=== PATIENT | female | born 1955 | race Caucasian/White ===

== ENCOUNTER 2023-09-24 17:03 | Inpatient (IN) ==
--- NOTE | 2023-09-24 18:07 | XRay Report ---
XR chest 1V not portable HISTORY: Chest pain, nonspecific COMPARISON: Chest 07/09/2013. FINDINGS: There are low lung volumes. No pneumothorax. No pleural effusions. Mild elevation of the ri ght hemidiaphragm. There are right basilar densities. The heart is mildly enlarged. No evidence for p ulmonary edema. No acute fractures. Surgical clips within the left axilla. IMPRESSION: 1. Low lung volumes with mild elevation of the right hemidiaphragm. Right basilar densities favor sub segmental atelectasis. A pneumonia could also have a similar appearance in the appropriate clinical s etting. 2. Mild cardiomegaly. ACT 112: Negative or not required by law. Electronically signed by: Farhan Wolf M.D. 09/24/2023 6:05 PM
--- NOTE | 2023-09-24 18:10 | Emergency Department Note ---
Impression & Plan Hypoxia, SOB (shortness of breath) ED Provider Note NAME: DAYAMI LUO AGE: 68 SEX: F : 1955 ARRIVES VIA: Walk-In INFORMANT: [Patient] ED PROVIDER(S): [Preet Hernandes MD] CHIEF COMPLAINT: Short of breath HISTORY OF PRESENT ILLNESS: The patient is a 68-year-old female who had right shoulder surgery today. During the operation, she did have a block performed on the shoulder. The patient was short of breath after the procedure and her O2 saturation was a bit low. She was felt safe for discharge. At home, she was quite short of breath and EMS noticed a very low saturation. O2 supplementation was applied. She was brought to the hospital. The patient does complain of some right shoulder pain, she feels as if she has to force herself to take a breath to get enough air. There has been no fever, no cough. PMHx/PSHx/Social Hx: See Below PHYSICAL EXAM: GENERAL: Patient is in no acute distress. HEENT: No acute trauma, normocephalic atraumatic, mucous membranes moist, no nasal congestion. NECK: No stridor, no adenopathy, no meningismus, trachea is midline. LUNGS: Breath sounds are clear but are diminished on the right. No obvious respiratory distress. HEART: 2/6 systolic murmur, regular rate and rhythm. ABDOMEN: Soft, nontender, no peritonitis. EXTREMITIES: No cyanosis. The patient has a right shoulder dressing with a right arm sling in place. No pedal edema. NEUROLOGIC: Oriented x 3, awake and alert. SKIN: No jaundice, no diaphoresis. DIFFERENTIAL DIAGNOSIS: Diaphragmatic nerve block, pneumothorax, pneumonia, aspiration, among others. EMERGENCY DEPARTMENT PROCEDURES: MEDICAL DECISION MAKING: The patient presents with some hypoxia and shortness of breath since her shoulder surgery today. 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 X-ray shows evidence for a diaphragm paralysis on the right. There was no pneumothorax, no pneumonia. The patient did well with simple O2 supplementation. There was a subtle leukocytosis, this is likely from the stress of the surgery and her events today. There was a normal hemoglobin and platelet count. No coagulopathy. No renal failure or significant electrolyte abnormality. No concerning liver enzyme elevation. ECG showed a normal sinus rhythm, no obvious ischemia. Cardiac enzyme testing x 1 was not consistent with acute cardiac injury. The patient was maintained on nasal cannula O2 supplementation. She was given an incentive spirometer. Given the hypoxia, the patient requires a hospital stay. She should improve as the block wears off. I spoke with the patient and case management, the on-call hospitalist was consulted. I did speak in advance of the patient's arrival to orthopedics, Mr. Resendez. Prior/Outside records/notes reviewed: Orthopedic note today describing her right shoulder surgery. ECG per my interpretation: Indication was shortness of breath. The ECG shows a normal sinus rhythm with a rate of 88. There is no acute ST elevation, no PVCs. The QTc is 464. Continuous Cardiac Monitoring per my interpretation: An order was placed for continuous cardiac monitoring. The monitor shows a rate of 85 with normal sinus rhythm. Imaging/x-ray results per my interpretation: Chest x-ray shows right diaphragm elevation, no pneumonia or pneumothorax. There is some atelectasis at the right base. Chronic Medical/Social conditions affecting care: Care/Management discussed with: Orthopedics-Mr. Resendez. Case management and the on-call hospitalist. Level of care consideration(s): After review of the information above and other included data: --I believe the patient requires escalation of care to admission DISPOSITION: Admission Past Med/Surg History Problem List (Updated 09/25/23 @ 10:48 by Kerrie Mosqueda PA-C) SOB (shortness of breath) (Acute) Hypoxia (Acute) S/P rotator cuff repair CAD (coronary artery disease) Acute and chronic respiratory failure with hypoxia Encounter for pre-operative examination Post-operative state (Acute 09/14/13) Post-operative state (Acute 07/31/13) Medical History Insomnia Hx of renal calculi no surgical intervention Rheumatoid arthritis Seasonal allergies severe Anxiety Hx of breast cancer 2005 right breast cancer -> surgical intervention 1997 left breast cancer -> radical total left mastectomy with lymph node removal and chemotherapy. History of aspiration pneumonia (1992) after having a cystoscopy with sedation at [facility], was admitted for ~2 weeks. Bilateral knee swelling chronic History of anesthesia reaction aspirated once in early due to no longer having esophageal sphincter - was eaten away from severe GERD/hiatal hernia - can not lay flat due to this GERD (gastroesophageal reflux disease) Hypothyroidism Depression Hyperlipidemia Hypertension BELL (dyspnea on exertion) Sleep apnea cpap at night Surgical History History of revision of total replacement of left knee joint History of arthroscopy of left shoulder (2019) S/P right knee arthroscopy x1 S/P left knee arthroscopy x2 S/P right mastectomy (2005) H/O total mastectomy of left breast (1997) with lymph node removal. History of bladder surgery bladder sling History of dilatation and curettage X3 History of esophagogastroduodenoscopy (EGD) History of colonoscopy History of cystoscopy History of total knee replacement bilateral History of hysterectomy vaginal hysterectomy with BSO and pelvic floor reconstruction History of endometrial ablation History of cholecystectomy History of Javier fundoplication (2003) History of tooth extraction History of heart artery stent 02/2018 at [facility] with 1 stent. 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 Beliefs That Will Affect Care: None Current Living Situation: Spouse Current Living Situation Comment: with Other Information That Helps Us Care for You: No Feels Safe at Home: Yes Safety Concerns: Feels Safe At This Time Assistive Devices: None Allergies Allergies Allergy/AdvReac Type Severity Reaction Status Date / Time bacitracin Allergy Intermediate localized Verified 09/24/23 06:13 swelling cefazolin Allergy Intermediate itching Verified 09/24/23 06:13 rash cephalexin Allergy Intermediate rash on Verified 09/24/23 06:13 chest miconazole Allergy Intermediate large hives Verified 09/24/23 06:13 morphine Allergy Intermediate Hives Verified 09/24/23 06:13 neomycin Allergy Intermediate localized Verified 09/24/23 06:13 swelling nickel Allergy Intermediate Rash Verified 09/24/23 06:13 polymyxin B Allergy Intermediate localized Verified 09/24/23 06:13 swelling Sulfa (Sulfonamide Allergy Intermediate fever and Verified 09/24/23 06:13 Antibiotics) rash prochlorperazine AdvReac Severe migraine Verified 09/24/23 06:13 lactose AdvReac Verified 09/25/23 08:49 Home Meds Home Medications Medication Instructions Recorded Confirmed Lactobacillus acidophilus 1 cap PO QAM 02/04/20 09/24/23 amlodipine 5 mg tablet 2.5 mg PO QAM 02/04/20 09/24/23 ascorbic acid (vitamin C) 1,000 mg 1 g PO QAM 02/04/20 09/24/23 tablet (Vitamin C) aspirin 81 mg tablet,delayed 81 mg PO QAM 02/04/20 09/24/23 release cholecalciferol (vitamin D3) 50 50 mcg PO QAM 02/04/20 09/24/23 mcg (2,000 unit) tablet (Vitamin D3) fluticasone propionate 50 1 spray intranasal [facility] 02/04/20 09/24/23 mcg/actuation nasal spray,suspension furosemide 40 mg tablet (Lasix) 40 mg PO BID 02/04/20 09/24/23 isosorbide mononitrate 60 mg 60 mg PO [facility] 02/04/20 09/24/23 tablet,extended release 24 hr levothyroxine 137 mcg tablet 137 mcg PO [facility] 02/04/20 09/24/23 melatonin 10 mg tablet 20 mg PO 02/04/20 09/24/23 metoprolol succinate 100 mg 100 mg PO [facility] 02/04/20 09/24/23 tablet,extended release 24 hr montelukast 10 mg tablet 10 mg PO QAM 02/04/20 09/24/23 (Singulair) multivitamin 1 tab PO QAM 02/04/20 09/24/23 mupirocin 2 % topical ointment 1 applic topical TID 02/04/20 09/24/23 pantoprazole 20 mg tablet,delayed 20 mg PO 02/04/20 09/24/23 release (Protonix) potassium 99 mg tablet 198 mg PO Q2D 02/04/20 09/24/23 valsartan 80 1 tab PO QAM 02/04/20 09/24/23 mg-hydrochlorothiazide 12.5 mg tablet vit C 250 mg-vit E 90 mg-zinc 40 1 tab PO BID 02/04/20 09/24/23 mg-copper 1 [id number] capsule (PreserVision AREDS-2) cetirizine 10 mg tablet (Zyrtec) 10 mg PO QPM 09/12/23 09/24/23 hydroxychloroquine 200 mg tablet 200 mg PO BID 09/12/23 09/24/23 (Plaquenil) ibuprofen 200 mg tablet 600 mg PO TID PRN Pain 09/12/23 09/24/23 magnesium oxide 400 mg PO Q2D 09/12/23 09/24/23 magnesium oxide 800 mg PO Q2D 09/12/23 09/24/23 nitroglycerin 0.4 mg sublingual 0.4 mg sublingual UD PRN Chest Pain 09/12/23 09/24/23 tablet potassium 99 mg tablet 297 mg PO Q2D 09/12/23 09/24/23 pravastatin 80 mg tablet 80 mg PO HS 09/12/23 09/24/23 sertraline 100 mg tablet 100 mg PO HS 09/12/23 09/24/23 trazodone 100 mg tablet 100 mg PO HS 09/12/23 09/24/23 Results & Data (ED) Vital Signs Vital Signs - 24 hr 09/24/23 17:05 09/24/23 17:21 09/24/23 17:23 Temperature 36.4 C L Temperature Source Temporal Artery Scan Pulse Rate 87 Pulse Rate [Apical] 84 Respiratory Rate 15 16 Respiratory Effort / Characteristics Spontaneous Short of Breath Non-Labored Spontaneous Respiratory Depth Normal Normal Respiratory Pattern Regular Regular Blood Pressure 148/73 H Blood Pressure [Right Calf] 149/55 H Blood Pressure Mean 98 Blood Pressure Mean [Right Calf] 86 Blood Pressure Position [Right Calf] Semi-fowlers Pulse Oximetry 88 L 94 Oxygen Delivery Method Room Air Room Air Room Air Oxygen Flow Rate Sepsis Recent Fever Within 48 Hours No Sepsis New/Unexplained Change in Mental Status N/A Sepsis Action Taken by Nursing No Action Required Oxygen Flow Rate - Titration 2 Pulse Oximetry Post Tiitration 93 09/24/23 17:23 09/24/23 17:40 Temperature Temperature Source Pulse Rate 83 85 Pulse Rate [Apical] Respiratory Rate 15 Respiratory Effort / Characteristics Respiratory Depth Respiratory Pattern Blood Pressure Blood Pressure [Right Calf] Blood Pressure Mean Blood Pressure Mean [Right Calf] Blood Pressure Position [Right Calf] Pulse Oximetry 93 Oxygen Delivery Method Nasal Cannula Oxygen Flow Rate 2 Sepsis Recent Fever Within 48 Hours Sepsis New/Unexplained Change in Mental Status Sepsis Action Taken by Nursing Oxygen Flow Rate - Titration Pulse Oximetry Post Tiitration Home Medications Current Medication List: was personally reviewed by me Laboratory Data Attestation: I reviewed the patient's lab results. 09/25/23 06:16 09/25/23 06:16 Lab Results 09/24/23 Range/Units 17:46 WBC 13.08 H (4.8-10.8) K/ul RBC 3.83 L (4.20-5.40) M/uL Hgb 12.3 (12.0-16.0) g/dl Hct 35.3 L (37.0-47.0) % MCV 92.2 (80.0-100.0) fL MCH 32.1 (25.0-34.0) pg MCHC 34.8 (32.0-36.0) g/dL RDW Std Deviation 42.4 (36.4-46.3) fL RDW Coeff of Nicholas 12.7 (11.5-14.5) % Plt Count 260 (130-400) K/uL MPV 10.8 (9.4-12.4) fL Immature Gran % (Auto) 0.7 % Neut % (Auto) 88.0 % Lymph % (Auto) 8.3 % [place] % (Auto) 2.8 % Eos % (Auto) 0.0 % Baso % (Auto) 0.2 % Neut # (Auto) 11.53 H (1.40-6.50) K/uL Lymph # (Auto) 1.08 L (1.20-3.40) K/uL [place] # (Auto) 0.36 (0.11-0.59) K/uL Eos # (Auto) 0.00 (0.00-0.50) K/uL Baso # (Auto) 0.02 (0.00-0.20) K/uL Immature Gran # (Auto) 0.09 (0.01-0.20) K/uL PT 11.1 (9.0-12.0) Seconds INR 1.0 (0.9-1.1) APTT 27 (21-31) Seconds PTT Ratio 1.0 Sodium 139 (136-145) mmol/L Potassium 3.6 (3.5-5.1) mmol/L Chloride 102 (98-107) mmol/L Carbon Dioxide 29 (21-32) mmol/L Anion Gap 8 (3-11) BUN 13 (6-23) mg/dl Creatinine 0.67 (0.6-1.2) mg/dl Est Cr Clr Drug Dosing Not Reportable Est GFR ( Amer) 104.7 ml/min Est GFR (Non-Af Amer) 90.3 ml/min BUN/Creatinine Ratio 19.4 (10-20) Glucose 127 H (70-99(Fasting)) mg/dl Calcium 9.4 (8.6-10.3) mg/dl Total Bilirubin 0.5 (0.2-1.0) mg/dl AST 22 (13-39) U/L ALT 22 (7-52) U/L Alkaline Phosphatase 69 (34-104) U/L Troponin I High Sens 9.3 (0-14) pg/ml Total Protein 6.7 (6.0-8.3) gm/dl Albumin 4.4 (3.4-5.0) gm/dl Globulin 2.3 L (2.5-4.0) gm/dl Albumin/Globulin Ratio 1.9 (0.9-2) Administered Medications Acetaminophen (Acetaminophen 325 Mg Tab) 650 mg PO Q4H PRN PRN Reason: pain/fever Stop: 10/24/23 20:44 Last Admin: 09/25/23 08:10 Dose: 650 mg Documented By: Admin: 09/24/23 21:18 Dose: 650 mg Documented By: VLADIMIR Amlodipine Besylate (Amlodipine Besylate 5 Mg Tab) 2.5 mg PO [facility] Stop: 10/25/23 08:59 Last Admin: 09/25/23 08:11 Dose: 2.5 mg Documented By: LETICIA Aspirin (Aspirin 81 Mg Ectab) 81 mg PO [facility] Stop: 10/25/23 08:59 Last Admin: 09/25/23 08:11 Dose: 81 mg Documented By: LETICIA Azithromycin (Azithromycin 250 Mg Tab) 250 mg PO [facility] Stop: 09/28/23 09:01 Last Admin: 09/25/23 08:12 Dose: 250 mg Documented By: LETICIA Fluticasone Propionate (Fluticasone Propionate Na Spr 16 Gm Btl) 1 sprays MARIA ELENA [facility] Stop: 10/25/23 08:59 Last Admin: 09/25/23 09:13 Dose: 1 sprays Documented By: LETICIA Furosemide (Furosemide 40 Mg Tab) 40 mg PO [id number] [facility] Stop: 10/24/23 20:59 Last Admin: 09/25/23 08:12 Dose: 40 mg Documented By: Admin: 09/24/23 22:08 Dose: 40 mg Documented By: VLADIMIR Hydrochlorothiazide (Hydrochlorothiazide 25 Mg Tab) 12.5 mg PO [facility] Stop: 10/25/23 08:59 Last Admin: 09/25/23 08:11 Dose: 12.5 mg Documented By: LETICIA Hydroxychloroquine Sulfate (Hydroxychloroquine Sulfate 200 Mg Tab) 200 mg PO BID [facility] Stop: 10/24/23 20:59 Last Admin: 09/25/23 08:12 Dose: 200 mg Documented By: Admin: 09/24/23 22:06 Dose: 200 mg Documented By: VLADIMIR Isosorbide Mononitrate (Isosorbide [place] Extended Rel 60 Mg Tabcr) 60 mg PO [facility] Stop: 10/25/23 08:59 Last Admin: 09/25/23 08:10 Dose: 60 mg Documented By: LETICIA Levothyroxine Sodium (Levothyroxine Sodium 137 Mcg Tablet) [facility] Stop: 10/25/23 06:29 Last Admin: 09/25/23 06:23 Dose: 137 mcg Documented By: VLADIMIR Magnesium Oxide (Magnesium Oxide 400 Mg Tab) 400 mg PO Q48H [facility] Stop: 10/25/23 08:59 Last Admin: 09/25/23 08:11 Dose: 400 mg Documented By: LETICIA Metoprolol Succinate (Metoprolol Succ 50mg Ext Rel Tab) 100 mg PO [facility] Stop: 10/25/23 08:59 Last Admin: 09/25/23 08:12 Dose: 100 mg Documented By: LETICIA Montelukast Sodium (Montelukast Sodium 10 Mg Tablet) 10 mg PO [facility] Stop: 10/25/23 08:59 Last Admin: 09/25/23 08:11 Dose: 10 mg Documented By: LETICIA Multivitamins/Minerals (Cerovite Adv Formula Tab) 1 tab PO [facility] Stop: 10/25/23 08:59 Last Admin: 09/25/23 08:11 Dose: 1 tab Documented By: LETICIA Mupirocin (Mupirocin 2% Oint 22 Gm Tube) 1 appln TOP TID [facility] Stop: 10/24/23 20:59 Last Admin: 09/25/23 08:12 Dose: 1 appln Documented By: Admin: 09/24/23 22:09 Dose: 1 appln Documented By: VLADIMIR Pantoprazole Sodium (Pantoprazole 40 Mg Tab) 40 mg PO [facility] Stop: 10/24/23 20:59 Last Admin: 09/24/23 22:07 Dose: 40 mg Documented By: VLADIMIR Pravastatin Sodium (Pravastatin Sod 40 Mg Tab) 80 mg PO [facility] Stop: 10/24/23 20:59 Last Admin: 09/24/23 22:08 Dose: 80 mg Documented By: VLADIMIR Sertraline HCl (Sertraline Hcl 100 Mg Tablet) 100 mg PO [facility] Stop: 10/24/23 20:59 Last Admin: 09/24/23 22:10 Dose: 100 mg Documented By: VLADIMIR Trazodone HCl (Trazodone Hcl 100 Mg Tab) 100 mg PO [facility] Stop: 10/24/23 20:59 Last Admin: 09/24/23 22:07 Dose: 100 mg Documented By: VLADIMIR Valsartan (Valsartan 80 Mg Tab) 80 mg PO [facility] Stop: 10/25/23 08:59 Last Admin: 09/25/23 08:12 Dose: 80 mg Documented By: LETICIA Vitamin D (Cholecalciferol 25 Mcg (1000 Units) Tab) 50 mcg PO [facility] Stop: 10/25/23 08:59 Last Admin: 09/25/23 08:11 Dose: 50 mcg Documented By: LETICIA Discontinued Medications Azithromycin (Azithromycin 250 Mg Tab) 500 mg PO NOW ONE Stop: 09/24/23 20:04 Last Admin: 09/24/23 20:22 Dose: 500 mg Documented By: PARESH Ketorolac Tromethamine (Ketorolac Tromethamine 15 Mg/Ml Vial) 15 mg IV NOW ONE Stop: 09/24/23 22:29 Last Admin: 09/24/23 22:48 Dose: 15 mg Documented By: VLADIMIR Ketorolac Tromethamine (Ketorolac Tromethamine 15 Mg/Ml Vial) 15 mg IV NOW ONE Stop: 09/25/23 03:39 Last Admin: 09/25/23 03:58 Dose: 15 mg Documented By: VLADIMIR Potassium Chloride (Potassium Chloride Crtab 20 Meq Tabcr) 40 meq PO NOW STA Stop: 09/25/23 07:32 Last Admin: 09/25/23 08:10 Dose: 40 meq Documented By: LETICIA Discharge Plan Visit Data Chief Complaint: Referred by Doctor Stated Complaint: SURGERY TODAY PULSE OX ED Provider: Preet Hernandes Discharge Problem: Hypoxia, SOB (shortness of breath) Patient Disposition: Admitted As Inpatient Condition: Good Discharge Instructions Interventions: ED Discharge Assessment Last Done: 09/24/23 19:55
[2023-09-24 18:21] LABS: Basophils # (auto) 0.02 K/uL (0.00-0.20); Basophils % (auto) 0.2 %; Hematocrit (blood only) 35.3 % (37.0-47.0); Hemoglobin 12.3 g/dl (12.0-16.0); Immature Granulocytes # (auto) 0.09 K/uL (0.01-0.20); Immature Granulocytes % (auto) 0.7 %; Lymphocytes # (auto) 1.08 K/uL (1.20-3.40); Lymphocytes % (auto) 8.3 %; Mean Corpuscular Hemoglobin 32.1 pg (25.0-34.0); Mean Corpuscular Hgb Conc 34.8 g/dL (32.0-36.0); Mean Corpuscular Volume 92.2 fL (80.0-100.0); Mean Platelet Volume 10.8 fL (9.4-12.4); Monocytes # (auto) 0.36 K/uL (0.11-0.59); Monocytes % (auto) 2.8 %; Neutrophils # (auto) 11.53 K/uL (1.40-6.50); Platelet Count 260 K/uL (130-400); RDW Coefficient of Variation 12.7 % (11.5-14.5); RDW Standard Deviation 42.4 fL (36.4-46.3); Red Blood Count 3.83 M/uL (4.20-5.40); White Blood Count 13.08 K/ul (4.8-10.8)
[2023-09-24 18:31] LABS: Alanine Aminotransferase 22 U/L (7-52); Albumin Globulin Ratio 1.9 (0.9-2); Albumin Level 4.4 gm/dl (3.4-5.0); Alkaline Phosphatase 69 U/L (34-104); Anion Gap 8 (3-11); Aspartate Aminotransferase 22 U/L (13-39); BUN Creatinine Ratio 19.4 (10-20); Bilirubin,Total 0.5 mg/dl (0.2-1.0); Blood Urea Nitrogen 13 mg/dl (6-23); Calcium 9.4 mg/dl (8.6-10.3); Carbon Dioxide 29 mmol/L (21-32); Chloride 102 mmol/L (98-107); Est GFR (African American) 104.7 ml/min; Est GFR (Non-African American) 90.3 ml/min; Globulin 2.3 gm/dl (2.5-4.0); Glucose 127 mg/dl (70-99(Fasting)); Potassium 3.6 mmol/L (3.5-5.1); Sodium 139 mmol/L (136-145); Total Protein 6.7 gm/dl (6.0-8.3)
[2023-09-24 18:38] LABS: Troponin I High Sensitivity 9.3 pg/ml (0-14)
[2023-09-24 18:58] LABS: Partial Thromboplastin Time 27 Seconds (21-31); Prothrombin Time 11.1 Seconds (9.0-12.0)
--- NOTE | 2023-09-24 19:02 | History & Physical Report ---
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 Supplemental oxygen Monitor on telemetry (2) CAD (coronary artery disease): Plan: Patient denies any chest pain Continue home medication (3) Hx of breast cancer: Plan: Bilateral mastectomy In remission (4) GERD (gastroesophageal reflux disease): Plan: Continue PPIs (5) Hypothyroidism: Plan: Continue Synthroid (6) Depression: Plan: Continue home meds (7) Hyperlipidemia: Plan: Continue statins (8) Hypertension: Plan: Continue metoprolol Continue furosemide Continue amlodipine Monitor blood pressure (9) Sleep apnea: Plan: Will order CPAP History of Present Illness Chief Complaint: Hypoxia, shortness of breath Primary Care Provider: Chris Espino The patient is a 68-year-old female breast cancer, GERD, osteoarthritis, CAD, history of stent, hypertension, obstructive sleep, who had right shoulder surgery today, right shoulder arthroscopy, small rotator cuff repair, subacromial decompression, biceps tenotomy , during the operation, she did have a block performed on the shoulder. The patient was short of breath after the procedure and her O2 saturation was a bit low. She was felt safe for discharge. At home, she was quite short of breath and EMS noticed a very low saturation. O2 supplementation was applied. She was brought to the hospital. Chest x-ray performed in ER she has a low lung volume with mild elevation of the right hemidiaphragm, subsegmental atelectasis. She denies chest pain, reports pedal, she takes Lasix at 40 mg twice a day. Took her cardiac meds this morning Allergies Allergy/AdvReac Type Severity Reaction Status Date / Time bacitracin Allergy Intermediate localized Verified 09/24/23 06:13 swelling cefazolin Allergy Intermediate itching Verified 09/24/23 06:13 rash cephalexin Allergy Intermediate rash on Verified 09/24/23 06:13 chest miconazole Allergy Intermediate large hives Verified 09/24/23 06:13 morphine Allergy Intermediate Hives Verified 09/24/23 06:13 neomycin Allergy Intermediate localized Verified 09/24/23 06:13 swelling nickel Allergy Intermediate Rash Verified 09/24/23 06:13 polymyxin B Allergy Intermediate localized Verified 09/24/23 06:13 swelling Sulfa (Sulfonamide Allergy Intermediate fever and Verified 09/24/23 06:13 Antibiotics) rash prochlorperazine AdvReac Severe migraine Verified 09/24/23 06:13 Home Medications Medication Instructions Recorded Confirmed Type Lactobacillus acidophilus 1 cap PO QAM 02/04/20 09/24/23 History amlodipine 5 mg tablet 2.5 mg PO QAM 02/04/20 09/24/23 History ascorbic acid (vitamin C) 1,000 mg 1 g PO QAM 02/04/20 09/24/23 History tablet (Vitamin C) aspirin 81 mg tablet,delayed 81 mg PO QAM 02/04/20 09/24/23 History release cholecalciferol (vitamin D3) 50 50 mcg PO QAM 02/04/20 09/24/23 History mcg (2,000 unit) tablet (Vitamin D3) fluticasone propionate 50 1 spray intranasal QAM 02/04/20 09/24/23 History mcg/actuation nasal spray,suspension furosemide 40 mg tablet (Lasix) 40 mg PO BID 02/04/20 09/24/23 History isosorbide mononitrate 60 mg 60 mg PO QAM 02/04/20 09/24/23 History tablet,extended release 24 hr levothyroxine 137 mcg tablet 137 mcg PO QAM 02/04/20 09/24/23 History melatonin 10 mg tablet 20 mg PO HS 02/04/20 09/24/23 History metoprolol succinate 100 mg 100 mg PO QAM 02/04/20 09/24/23 History tablet,extended release 24 hr montelukast 10 mg tablet 10 mg PO QAM 02/04/20 09/24/23 History (Singulair) multivitamin 1 tab PO QAM 02/04/20 09/24/23 History mupirocin 2 % topical ointment 1 applic topical TID 02/04/20 09/24/23 History pantoprazole 20 mg tablet,delayed 20 mg PO HS 02/04/20 09/24/23 History release (Protonix) potassium 99 mg tablet 198 mg PO Q2D 02/04/20 09/24/23 History valsartan 80 1 tab PO QAM 02/04/20 09/24/23 History mg-hydrochlorothiazide 12.5 mg tablet vit C 250 mg-vit E 90 mg-zinc 40 1 tab PO BID 02/04/20 09/24/23 History mg-copper 1 [id number] capsule (PreserVision AREDS-2) cetirizine 10 mg tablet (Zyrtec) 10 mg PO QPM 09/12/23 09/24/23 History hydroxychloroquine 200 mg tablet 200 mg PO BID 09/12/23 09/24/23 History (Plaquenil) ibuprofen 200 mg tablet 600 mg PO TID PRN Pain 09/12/23 09/24/23 History magnesium oxide 400 mg PO Q2D 09/12/23 09/24/23 History magnesium oxide 800 mg PO Q2D 09/12/23 09/24/23 History nitroglycerin 0.4 mg sublingual 0.4 mg sublingual UD PRN Chest Pain 09/12/23 09/24/23 History tablet potassium 99 mg tablet 297 mg PO Q2D 09/12/23 09/24/23 History pravastatin 80 mg tablet 80 mg PO HS 09/12/23 09/24/23 History sertraline 100 mg tablet 100 mg PO HS 09/12/23 09/24/23 History trazodone 100 mg tablet 100 mg PO HS 09/12/23 09/24/23 History Past Med/Surg History Problem List CAD (coronary artery disease) Acute and chronic respiratory failure with hypoxia Encounter for pre-operative examination Post-operative state (Acute 09/14/13) Post-operative state (Acute 07/31/13) Medical History Insomnia Hx of renal calculi no surgical intervention Rheumatoid arthritis Seasonal allergies severe Anxiety Hx of breast cancer 2005 right breast cancer -> surgical intervention 1997 left breast cancer -> radical total left mastectomy with lymph node removal and chemotherapy. History of aspiration pneumonia (1992) after having a cystoscopy with sedation at [facility], was admitted for ~2 weeks. Bilateral knee swelling chronic History of anesthesia reaction aspirated once in early s due to no longer having esophageal sphincter - was eaten away from severe GERD/hiatal hernia - can not lay flat due to this GERD (gastroesophageal reflux disease) Hypothyroidism Depression Hyperlipidemia Hypertension BELL (dyspnea on exertion) Sleep apnea cpap at night Surgical History History of revision of total replacement of left knee joint History of arthroscopy of left shoulder (2019) S/P right knee arthroscopy x1 S/P left knee arthroscopy x2 S/P right mastectomy (2005) H/O total mastectomy of left breast (1997) with lymph node removal. History of bladder surgery bladder sling History of dilatation and curettage X3 History of esophagogastroduodenoscopy (EGD) History of colonoscopy History of cystoscopy History of total knee replacement bilateral History of hysterectomy vaginal hysterectomy with BSO and pelvic floor reconstruction History of endometrial ablation History of cholecystectomy History of Javier fundoplication (2003) History of tooth extraction History of heart artery stent 02/2018 at [facility] with 1 stent. History of cardiac cath 02/2018 at [facility] with 1 stent placement ~2021 at [facility] - no stents needed Family History Aunt Colon cancer Father Diabetes Other No family history of adverse response to anesthesia Social History Smoking Status: Never smoker Second Hand Exposure: Yes (IN PAST); Do You Dip or Chew Tobacco: No; Hx Alcohol Use: Yes Alcohol type: wine Hx Substance Use: No Preferred Language: Wolof Communication Ability: Effective Case Fitter Required: No Beliefs That Will Affect Care: None Current Living Situation: Spouse Feels Safe at Home: Yes Assistive Devices: CPAP and Glasses Review of Systems Review of Systems: All systems reviewed & are unremarkable except as noted in Subjective Physical Exam Physical Exam: GENERAL: Patient is in no acute distress. HEENT: No acute trauma, normocephalic atraumatic, mucous membranes moist, no nasal congestion. NECK: No stridor, no adenopathy, no meningismus, trachea is midline. LUNGS: Breath sounds are clear but are diminished on the right. No obvious respiratory distress. HEART: 2/6 systolic murmur, regular rate and rhythm. ABDOMEN: Soft, nontender, no peritonitis. EXTREMITIES: No cyanosis. The patient has a right shoulder dressing with a right arm sling in place. No pedal edema. NEUROLOGIC: Oriented x 3, awake and alert. SKIN: No jaundice, no diaphoresis. Results & Data Results & Data Vital Signs (Past 12 Hours) Vital Signs Temp Pulse Pulse Resp BP BP Pulse Ox 09/24/23 17:40 85 09/24/23 17:23 83 15 93 09/24/23 17:23 09/24/23 17:21 84 16 149/55 H 94 09/24/23 17:05 36.4 C L 87 15 148/73 H 88 L O2 Del Method O2 Flow Rate 09/24/23 17:40 09/24/23 17:23 Nasal Cannula 2 09/24/23 17:23 Room Air 09/24/23 17:21 Room Air 09/24/23 17:05 Room Air Laboratory Results Abnormal lab results 09/24/23 Range/Units 17:46 WBC 13.08 H (4.8-10.8) K/ul RBC 3.83 L (4.20-5.40) M/uL Hct 35.3 L (37.0-47.0) % Neut # (Auto) 11.53 H (1.40-6.50) K/uL Lymph # (Auto) 1.08 L (1.20-3.40) K/uL Glucose 127 H (70-99(Fasting)) mg/dl Globulin 2.3 L (2.5-4.0) gm/dl Diagnostic Findings Chest X-Ray 09/24/23 17:10 XR chest 1V not portable HISTORY: Chest pain, nonspecific COMPARISON: Chest 07/09/2013. FINDINGS: There are low lung volumes. No pneumothorax. No pleural effusions. Mild elevation of the right hemidiaphragm. There are right basilar densities. The heart is mildly enlarged. No evidence for pulmonary edema. No acute fractures. Surgical clips within the left axilla. IMPRESSION: 1. Low lung volumes with mild elevation of the right hemidiaphragm. Right basilar densities favor subsegmental atelectasis. A pneumonia could also have a similar appearance in the appropriate clinical setting. 2. Mild cardiomegaly. ACT 112: Negative or not required by law. Electronically signed by: Farhan Wolf M.D. 09/24/2023 6:05 PM PG Care Time/CCT Total # of Minutes Spent Total Time Spent with Patient: Total time spent is greater than 50% in coordination of care (as documented) at patient's floor/unit and/or counseling patient: Coding Level of Care Code 66112 INT INP/OBS CARE MIN Diagnoses Acute and chronic respiratory failure with hypoxia J96.21 CAD (coronary artery disease) I25.10 Hx of breast cancer Z85.3 GERD (gastroesophageal reflux disease) K21.9 Hypothyroidism E03.9 Depression F32.9 Hyperlipidemia E78.5 Hypertension I10 Sleep apnea G47.30
[2023-09-24] MEDS: AZITHROMYCIN 250 MG TAB PO ONE (20:22)
[2023-09-24] MEDS ORDERED: NITROGLYCERIN SL 0.4 MG/TAB TAB SL PRN (20:45)
[2023-09-24] MEDS ORDERED: ONDANSETRON INJ 2 MG/ML 2 ML VIAL IV PRN (20:45)
[2023-09-24] MEDS ORDERED: MAGNESIUM HYDROXIDE SUSP 30 ML UDC PO PRN (20:45)
[2023-09-24] MEDS ORDERED: POLYETHYLENE (MIRALAX) 17 GM PACK PO PRN (20:45)
[2023-09-24] MEDS ORDERED: NON-FORMULARY MEDICATION (Potassium 99 mg Tablet) PO SCH (20:45)
[2023-09-24] MEDS: ACETAMINOPHEN 325 MG TAB PO PRN (21:18)
[2023-09-24] MEDS: HYDROXYCHLOROQUINE SULFATE 200 MG TAB PO SCH (22:06)
[2023-09-24] MEDS: PANTOprazole 40 MG TAB PO SCH (22:07)
[2023-09-24] MEDS: traZODone HCL 100 MG TAB PO SCH (22:07)
[2023-09-24] MEDS: FUROSEMIDE 40 MG TAB PO SCH (22:08)
[2023-09-24] MEDS: PRAVASTATIN SOD 40 MG TAB PO SCH (22:08)
[2023-09-24] MEDS: MUPIROCIN 2% OINT 22 GM TUBE TOP SCH (22:09)
[2023-09-24] MEDS: SERTRALINE HCL 100 MG TABLET PO SCH (22:10)
[2023-09-24] MEDS: KETOROLAC TROMETHAMINE 15 MG/ML VIAL IV ONE (22:48)
[2023-09-25] MEDS: KETOROLAC TROMETHAMINE 15 MG/ML VIAL IV ONE (03:58)
[2023-09-25] MEDS: LEVOTHYROXINE SODIUM 137 MCG TABLET PO SCH (06:23)
--- NOTE | 2023-09-25 06:47 | Orthopedic Progress Note ---
Date of Service September 25, 2023 Assessment & Plan Admission and Anticipated Discharge Date Admission Date: September 24, 2023 Subjective Patient sitting up in bed. States she feels comfortable. Has not been out of bed yet. Denies any chest pain shortness of breath fever chills nausea vomiting or headache. Vital signs are stable she is afebrile. O2 sat still in the 90s low 90s with 2 L. Detailed assessment of her block reveals that the motor function of her upper extremity is virtually returned. She feels like she can breathe a little bit more on the right side. Abdomen soft nontender wound dressing clean dry and intact. Yesterday's lab work is fine not sure why it is being repeated today she will not lose any blood. Assessment hypoxia secondary to diaphragm dysfunction from supraclavicular block perioperatively placed. At this point in time she will try to continue to mobilize her to get her appropriately ready for discharge when it is medically indicated. She has an outpatient PT appointment at 230. I suggest we keep her here until about an hour before hand if she is going to be discharged so that she can go right over the physical therapy have her dressing changed and begin appropriate mobilization of her shoulder according to the protocol for the type of rotator cuff repair she had. Discharge decision per medical coverage. Results & Data Vital Signs (Past 12 Hours) Vital Signs Temp Pulse Pulse Resp BP Pulse Ox O2 Del Method 09/25/23 05:48 37.3 C 84 18 181/65 H 92 Nasal Cannula 09/25/23 02:37 36.9 C 59 L 18 168/68 H 97 CPAP 09/24/23 23:09 36.6 C 69 18 150/66 H 95 CPAP 09/24/23 22:58 72 18 95 09/24/23 22:04 77 09/24/23 21:00 Nasal Cannula, CPAP 09/24/23 20:48 82 O2 Flow Rate 09/25/23 05:48 2 09/25/23 02:37 09/24/23 23:09 09/24/23 22:58 2 09/24/23 22:04 09/24/23 21:00 2 09/24/23 20:48
[2023-09-25 06:54] LABS: Basophils # (auto) 0.02 K/uL (0.00-0.20); Basophils % (auto) 0.1 %; Eosinophils # (auto) 0.05 K/uL (0.00-0.50); Eosinophils % (auto) 0.4 %; Hematocrit (blood only) 33.6 % (37.0-47.0); Hemoglobin 11.2 g/dl (12.0-16.0); Immature Granulocytes # (auto) 0.08 K/uL (0.01-0.20); Immature Granulocytes % (auto) 0.6 %; Lymphocytes # (auto) 2.44 K/uL (1.20-3.40); Lymphocytes % (auto) 18.1 %; Mean Corpuscular Hemoglobin 31.3 pg (25.0-34.0); Mean Corpuscular Hgb Conc 33.3 g/dL (32.0-36.0); Mean Corpuscular Volume 93.9 fL (80.0-100.0); Mean Platelet Volume 11.1 fL (9.4-12.4); Monocytes # (auto) 1.08 K/uL (0.11-0.59); Neutrophils # (auto) 9.81 K/uL (1.40-6.50); Neutrophils % (auto) 72.8 %; Platelet Count 229 K/uL (130-400); RDW Coefficient of Variation 12.8 % (11.5-14.5); RDW Standard Deviation 43.9 fL (36.4-46.3); Red Blood Count 3.58 M/uL (4.20-5.40); White Blood Count 13.48 K/ul (4.8-10.8)
[2023-09-25 07:10] LABS: Calcium 8.8 mg/dl (8.6-10.3); Est GFR (African American) 103.2 ml/min; Potassium 3.4 mmol/L (3.5-5.1)
--- NOTE | 2023-09-25 07:51 | XRay Report ---
XR chest 1V portable HISTORY: Shortness of breath. COMPARISON: Chest 09/24/2023. FINDINGS: No pneumothorax. No pleural effusions. There are low lung volumes. The cardiac silhouette r emains enlarged. No evidence for pulmonary edema. Surgical clips within the left axilla. Bibasilar li near densities have improved and favor subsegmental atelectasis. IMPRESSION: 1. Stable cardiomegaly. 2. Bibasilar linear densities have improved and favor subsegmental atelectasis. ACT 112: Negative or not required by law. Electronically signed by: Farhan Wolf M.D. 09/25/2023 7:49 AM
[2023-09-25] MEDS: POTASSIUM CHLORIDE CRTAB 20 MEQ TABCR PO STA (08:10)
[2023-09-25] MEDS: ISOSORBIDE MONO EXTENDED REL 60 MG TABCR PO SCH (08:10)
[2023-09-25] MEDS: hydroCHLOROthiazide 25 MG TAB PO SCH (08:11)
[2023-09-25] MEDS: MAGNESIUM OXIDE 400 MG TAB PO SCH (08:11)
[2023-09-25] MEDS: CHOLECALCIFEROL 25 MCG (1000 UNITS) TAB PO SCH (08:11)
[2023-09-25] MEDS: amLODIPine BESYLATE 5 MG TAB PO SCH (08:11)
[2023-09-25] MEDS: MONTELUKAST SODIUM 10 MG TABLET PO SCH (08:11)
[2023-09-25] MEDS: CEROVITE ADV FORMULA TAB PO SCH (08:11)
[2023-09-25] MEDS: ASPIRIN 81 MG ECTAB PO SCH (08:11)
[2023-09-25] MEDS: METOPROLOL SUCC 50MG EXT REL TAB PO SCH (08:12)
[2023-09-25] MEDS: VALSARTAN 80 MG TAB PO SCH (08:12)
[2023-09-25] MEDS: AZITHROMYCIN 250 MG TAB PO SCH (08:12)
[2023-09-25] MEDS ORDERED: VALSARTAN/HCTZ 80/12.5MG TAB PO SCH (09:00)
[2023-09-25] MEDS: FLUTICASONE PROPIONATE NA SPR 16 GM BTL NAE SCH (09:13)
[2023-09-25] MEDS ORDERED: oxyCODONE HCL IR 5 MG TAB (IMMEDIATE RELEASE) PO PRN (10:42)
--- NOTE | 2023-09-25 10:50 | Orthopedic Progress Note ---
Date of Service September 25, 2023 Assessment & Plan (1) S/P rotator cuff repair: Plan: Dressings changed today. No need to come to office this afternoon for appointment. Will plan to start outpatient PT tomorrow at [facility] in [place]. I will send them a post operative protocol Patient may do AROM of fingers, wrist and elbow right upper extremity Continue Sling right arm at all times Ice to shoulder as needed for pain Oxycodone added to medications while in hospital. She has percocet already at home (given preop) for use. May be out of bed as tolerated/ad rosa isela Okay for discharge from ortho standpoint when medically stable Appreciate medical assistance. Follow up as outpatient as scheduled. Admission and Anticipated Discharge Date Admission Date: September 24, 2023 Subjective Patient sitting in bed. No complaints of shortness of breath. Starting to feel some pain in right shoulder. Still with some numbness right forearm and thumb and index finger. Toleratin regular diet. Has been ambulating in the room. Physical Exam Musculoskeletal: Exam of right shoulder: Post op dressing removed, xeroform kept in place. Incisions clean, dry and intact. Minimal dried bloody drainage on dressings. New dressings applied. Active ROM of fingers is full. Paresthesias in tip of thumb, index finger and right forearm as expected with nerve block RUE from yesterday. Distal pulses 1 +, no edema right arm. Sling in place. Results & Data Vital Signs (Past 12 Hours) Vital Signs Temp Pulse Pulse Resp BP Pulse Ox O2 Del Method 09/25/23 08:00 69 09/25/23 08:00 Room Air 09/25/23 07:00 36.7 C 60 19 147/74 H 94 Room Air 09/25/23 05:48 37.3 C 84 18 181/65 H 92 Nasal Cannula 09/25/23 02:37 36.9 C 59 L 18 168/68 H 97 CPAP 09/24/23 23:09 36.6 C 69 18 150/66 H 95 CPAP 09/24/23 22:58 72 18 95 O2 Flow Rate 09/25/23 08:00 09/25/23 08:00 09/25/23 07:00 09/25/23 05:48 2 09/25/23 02:37 09/24/23 23:09 09/24/23 22:58 2
[2023-09-25] MEDS: oxyCODONE HCL IR 5 MG TAB (IMMEDIATE RELEASE) PO PRN (12:19)
--- NOTE | 2023-09-25 12:22 | Discharge Summary ---
Date of Service September 25, 2023 Admission HPI Per Admitting Provider The patient is a 68-year-old female breast cancer, GERD, osteoarthritis, CAD, history of stent, hypertension, obstructive sleep, who had right shoulder surgery today, right shoulder arthroscopy, small rotator cuff repair, subacromial decompression, biceps tenotomy , during the operation, she did have a block performed on the shoulder. The patient was short of breath after the procedure and her O2 saturation was a bit low. She was felt safe for discharge. At home, she was quite short of breath and EMS noticed a very low saturation. O2 supplementation was applied. She was brought to the hospital. Chest x-ray performed in ER she has a low lung volume with mild elevation of the right hemidiaphragm, subsegmental atelectasis. She denies chest pain, reports pedal, she takes Lasix at 40 mg twice a day. Took her cardiac meds this morning Admission Exam Per Admitting Provider GENERAL: Patient is in no acute distress. HEENT: No acute trauma, normocephalic atraumatic, mucous membranes moist, no nasal congestion. NECK: No stridor, no adenopathy, no meningismus, trachea is midline. LUNGS: Breath sounds are clear but are diminished on the right. No obvious respiratory distress. HEART: 2/6 systolic murmur, regular rate and rhythm. ABDOMEN: Soft, nontender, no peritonitis. EXTREMITIES: No cyanosis. The patient has a right shoulder dressing with a right arm sling in place. No pedal edema. NEUROLOGIC: Oriented x 3, awake and alert. SKIN: No jaundice, no diaphoresis. Principal Diagnosis Acute on chronic respiratory failure with hypoxia due to right diaphragmatic paralysis status post right shoulder surgery Discharge Exam General: Awake, conversant Heart: S1, S2/regular rate and rhythm, no murmur rubs or gallops Lungs: Clear to auscultation bilaterally. Normal effort Abdomen: Soft/nontender/nondistended. No hepatosplenomegaly Extremities: No clubbing/cyanosis. No edema. Right shoulder dressing on with right arm sling in place. Behavior: Appropriate, cooperative Discharge Data Allergies Allergy/AdvReac Type Severity Reaction Status Date / Time bacitracin Allergy Intermediate localized Verified 09/24/23 06:13 swelling cefazolin Allergy Intermediate itching Verified 09/24/23 06:13 rash cephalexin Allergy Intermediate rash on Verified 09/24/23 06:13 chest miconazole Allergy Intermediate large hives Verified 09/24/23 06:13 morphine Allergy Intermediate Hives Verified 09/24/23 06:13 neomycin Allergy Intermediate localized Verified 09/24/23 06:13 swelling nickel Allergy Intermediate Rash Verified 09/24/23 06:13 polymyxin B Allergy Intermediate localized Verified 09/24/23 06:13 swelling Sulfa (Sulfonamide Allergy Intermediate fever and Verified 09/24/23 06:13 Antibiotics) rash prochlorperazine AdvReac Severe migraine Verified 09/24/23 06:13 lactose AdvReac Verified 09/25/23 08:49 Consultations 09/24/23 18:27 ED Decision to Admit Stat Hospital Course (1) Acute and chronic respiratory failure with hypoxia: Patient underwent right shoulder surgery today, had a nerve block, developed hypoxia, probably has a right diaphragmatic paralysis Improved today Not hypoxic anymore Not short of breath anymore Two-step completed, not needing any oxygen Cleared by orthopedics for discharge (2) CAD (coronary artery disease): Patient denies any chest pain Continue home medication (3) Hx of breast cancer: Bilateral mastectomy In remission (4) GERD (gastroesophageal reflux disease): Continue PPIs (5) Hypothyroidism: Continue Synthroid (6) Depression: Continue home meds (7) Hyperlipidemia: Continue statins (8) Hypertension: Continue metoprolol Continue furosemide Continue amlodipine (9) Sleep apnea: Continue CPAP Plan Discharge to home Total Time Total Time Spent Total Time Spent (In Minutes): 35 Discharge Plan Discharge Items Patient Disposition: Home - Self-Care Reason For Visit: HYPOXIA Discharge Diagnosis: Acute hypoxic respiratory failure due to Right diaphragmatic paralysis post shoulder surgery Condition on Discharge: Good Activity: Resume your previous activity Non-emergency contact: Primary Care Provider Call non-emergency contact if: you have any medication questions and your symptoms worsen Follow-up/Referrals: Chris Espino M.D. [Primary Care Provider] - Diet: Heart Healthy Addtl Attending Provider Instructions: - Advised to follow-up with PCP in 1 week - Advised to follow-up with orthopedics as per previous schedule Addtl Static Balancer Provider Instructions: The following are instructions to follow after "Shoulder Surgery" including, Acromioplasty, Rotator Cuff Repair and Instability Surgery ACTIVITY RECOMMENDATIONS: * Minimize activity after surgery. * No excessive walking, jogging, sports or laboring. * Return to activity is individualized depending on the patient and type of surgery. * Driving is not permitted until at least your first post operative visit. Please ask your doctor when it is safe to resume driving. * Expect increased discomfort with increased activity. Continue to ice the shoulder as needed. SCHOOL/WORK RECOMMENDATIONS: * You may return to sedentary work or school when you are feeling more comfortable. This is usually 3-7 days after surgery. MEDICATIONS: * You will have a prescription for pain medication and an anti-inflammatory medication after surgery. * Use the pain medication for severe pain and the anti-inflammatory for less severe pain. Once the pain medication has run out, try to use the anti-inflammatory medication. If this is not effective, contact the office for assistance. * The pain medication may cause nausea, constipation and drowsiness. You should see how they affect you before driving or similar activity. * The anti-inflammatory medication may cause stomach upset and bleeding. If this occurs let your doctor know immediately . * Take a stool softener like Colace or a laxative like Senokot to prevent constipation. DIET: * Resume previous diet. SPECIAL CARE: ICE: You have the option of an ice cooler, gel packs or ice bags. * If you have an ice cooler, refer to the instructions for that device. The ice cooler may be used continuously. * If you do not have an ice cooler, you will need to use ice bags or gel packs. Do not apply ice directly to the skin. Use a thin dressing or molly shirt between the skin and ice bag. Apply ice for 20-30 minutes and repeat every 2-4 hours. This is especially important for the first 7-10 days after surgery. Once the pain improves, use ice as needed. ELEVATION: * You may be more comfortable sleeping in an upright position. Use the sling to elevate your arm. DRESSING: * Your dressing will be changed at your first therapy appointment approximately 4-5 days after surgery. Band-aids, tape strips or gauze may be applied. You may then change your dressing daily. * Reapply dressing followed by the EBIce cooling pad (if chosen) and then the sling. * Always wash your hands prior to touching the incision area. * Once the stitches are removed, you may leave the wound open to air or cover with gauze. * Expect some bloody drainage for the first few days after surgery. * Leave the tape strips, if present, in place for 5-7 days. * Band-aids and gauze may be changed daily. * There may be a gauze pad in your armpit area. This can be changed daily or replaced by a dry washcloth. SLING/BRACE: * You will need to use a sling or brace after surgery. The length of time the sling is used is dependent upon the type of surgery performed. * Arthroscopic Acromioplasty requires use of the sling for 2-4 weeks for comfort. * Labral procedures and Rotator Cuff Repairs require use of the sling for a longer period of time. Please check with your doctor prior to discontinuing the sling. BATHING: * You may shower or sponge-bathe immediately after surgery. The post operative shoulder dressing is mostly water-tight. You may shower right over this dressing, but be reasonably careful not to get the gauze or incision wet. * Once the dressing has been changed on the fourth or fifth day after surgery, you may shower and get the incision wet. * Wash with regular soap and water. * Do not bathe (submerge the incision), soak, swim or use a hot tub until the incision is completely healed over with normal skin and the doctor has given the OK to proceed. * There is no need to apply any ointments, powders or salves to your incision. * Do not apply alcohol or hydrogen peroxide directly to the incision. * Diluted peroxide (50:50 mixture with sterile saline) may be used to clean dried blood from around the incision area. THERAPY: * You will begin therapy four or five days after surgery. * Organized therapy with the therapist is important for the first 2-4 months after surgery depending on the type of procedure. During that time you will attend therapy 1-3 times per week. * You will also need to do daily exercises for range of motion and strength as instructed. * Patients who have a Capsular Shift Procedure will need to abide by temporary range of motion limitations. * Patients having Rotator Cuff Surgery are not allowed to actively lift their arms until 4-6 weeks after surgery. * Please check with your doctor regarding appropriate motion restrictions. FOLLOW UP VISIT: * If not already scheduled, please call the office at to schedule a follow-up appointment for 10 days after surgery and monthly thereafter. Pending Studies at Discharge: No Stand-Alone Forms: My [facility] Medications and DC Order Prescriptions: Continued multivitamin Tablet 1 tab PO QAM furosemide [Lasix] 40 mg Tablet 40 mg PO BID levothyroxine 137 mcg Tablet 137 mcg PO QAM ascorbic acid (vitamin C) [Vitamin C] 1,000 mg Tablet 1 g PO QAM metoprolol succinate 100 mg Tablet Extended Release 24 Hr 100 mg PO QAM amlodipine 5 mg Tablet 2.5 mg PO QAM aspirin 81 mg Tablet,Delayed Release (Dr/Ec) 81 mg PO QAM pantoprazole [Protonix] 20 mg Tablet,Delayed Release (Dr/Ec) 20 mg PO HS valsartan-hydrochlorothiazide 80-12.5 mg Tablet 1 tab PO QAM isosorbide mononitrate 60 mg Tablet Extended Release 24 Hr 60 mg PO QAM potassium 99 mg Tablet 198 mg PO Q2D Rx Instructions: alternates 2 tablets with 3 tablets every other day montelukast [Singulair] 10 mg Tablet 10 mg PO QAM mupirocin 2 % Ointment 1 applic TOPICAL TID Lactobacillus acidophilus Capsule 1 cap PO QAM fluticasone propionate 50 mcg/actuation [place],Suspension 1 spray INTRANASAL QAM cholecalciferol (vitamin D3) [Vitamin D3] 50 mcg (2,000 unit) Tablet 50 mcg PO QAM melatonin 10 mg Tablet 20 mg PO HS PreserVision AREDS-2 [id number]-mg Capsule 1 tab PO BID cetirizine [Zyrtec] 10 mg Tablet 10 mg PO QPM sertraline 100 mg Tablet 100 mg PO HS potassium 99 mg Tablet 297 mg PO Q2D Rx Instructions: alternates 2 tablets with 3 tablets every other day pravastatin 80 mg Tablet 80 mg PO HS nitroglycerin 0.4 mg Tablet, Sublingual 0.4 mg sublingual UD PRN (Reason: Chest Pain) magnesium oxide 400 mg magnesium Capsule 400 mg PO Q2D magnesium oxide 400 mg magnesium Capsule 800 mg PO Q2D Rx Instructions: alternates 1 tablet with 2 tablets every other day trazodone 100 mg Tablet 100 mg PO HS hydroxychloroquine [Plaquenil] 200 mg Tablet 200 mg PO BID ibuprofen 200 mg Tablet 600 mg PO TID PRN (Reason: Pain) Discharge Orders: Discharge Order (Routine); Ordered 09/25/23 Ordered By: Shy Cardona Admission Data Admit Date/Time: 09/24/23 18:50 Attending Provider: Shy Cardona Admit Provider: Erica Haque Primary Care Provider: Chris Espino Other Providers: Erica Haque Coding Level of Care Code 73737 INP/OBS DISCH >30 MIN Diagnoses Acute and chronic respiratory failure with hypoxia J96.21 CAD (coronary artery disease) I25.10 Hx of breast cancer Z85.3 GERD (gastroesophageal reflux disease) K21.9 Hypothyroidism E03.9 Depression F32.9 Hyperlipidemia E78.5 Hypertension I10 Sleep apnea G47.30
[2023-09-25] MEDS ORDERED: MELATONIN 3 MG TAB PO SCH (21:00)
--- NOTE | 2023-09-26 00:20 | Electrocardiogram Report ---
Test Reason : Blood Pressure : / mmHG Vent. Rate : 088 BPM Atrial Rate : 088 BPM P-R Int : 192 ms QRS Dur : 098 ms QT Int : 384 ms P-R-T Axes : 029 036 021 degrees QTc Int : 464 ms Normal sinus rhythm Possible Inferior infarct When compared with ECG of 09-JUL-2013 13:54, No significant change Confirmed by Jason Nicole ([id number]) on 09/26/2023 12:20:00 AM Referred By: REFERRED SELF Confirmed By:Jason Nicole
== END 2023-09-25 15:50 | disposition home or self-care (01) | DRG 205 ==
LOC: ED 17:03 → 4W 18:50 → SUATTDRO 18:50 → 4W 19:55
DX: I25.10 Atherosclerotic heart disease of native coronary artery without angina pectoris; Z95.5 Presence of coronary angioplasty implant and graft; Z88.2 Allergy status to sulfonamides; Z88.1 Allergy status to other antibiotic agents; G47.33 Obstructive sleep apnea (adult) (pediatric); Z79.82 Long term (current) use of aspirin; Z98.890 Other specified postprocedural states; Z79.890 Hormone replacement therapy; Z88.5 Allergy status to narcotic agent; Y92.009 Unspecified place in unspecified non-institutional (private) residence as the place of occurrence of the external cause; Z96.653 Presence of artificial knee joint, bilateral; F32.A Depression, unspecified; J98.6 Disorders of diaphragm; J96.21 Acute and chronic respiratory failure with hypoxia; Y83.8 Other surgical procedures as the cause of abnormal reaction of the patient, or of later complication, without mention of misadventure at the time of the procedure; Z85.3 Personal history of malignant neoplasm of breast; K21.9 Gastro-esophageal reflux disease without esophagitis; E03.9 Hypothyroidism, unspecified